=== PATIENT | male | born 1990 | race Caucasian/White ===

== ENCOUNTER 2018-03-30 05:52 | Emergency (ER) | END 2018-03-30 07:43 | disposition home or self-care (01) ==

== ENCOUNTER 2018-04-10 05:32 | Emergency (ER) | END 2018-04-10 07:53 | disposition home or self-care (01) ==

== ENCOUNTER 2019-05-03 12:03 | Emergency (ER) | payer MEDICAID, OTHER ==
[~2019-05-03] VITALS: Ht 167.6 cm; Wt 94.0 kg
[~2019-05-03 12:03] MED LIST: FAMO-96 PO; ONDA4TAB14 PO; ONDA4TAB8 PO; RANI-535 PO
[2019-05-03 12:28] VITALS: BP 155/92; PULSE 92; RESP 20; Ht 167.6 cm; Wt 94.0 kg
[2019-05-03] MEDS ORDERED: LIDOCAINE/MYLANTA 40 ML BTL PO ONE (14:00)
== END 2019-05-03 14:51 | disposition home or self-care (01) ==
LOC: FTE 12:03
DX: R10.13 Epigastric pain (principal)
CPT/HCPCS: 36415; 80053; 81001; 83690; 85025; Z7502; Z7610; 99283